=== PATIENT | male | born 1990 | race Two or more races ===

== ENCOUNTER 2018-06-18 16:38 | Emergency (ER) | payer OTHER ==
[2018-06-18] MEDS ORDERED: Benzocaine 20% Topical Spray UD MUCMEM ONE (16:56)
[2018-06-18] MEDS ORDERED: Lidocaine 2% Viscous Solution 15 ML Cup PO STA (16:56)
--- NOTE | 2018-06-18 16:56 | EDM.PDOC ---
ED HPI GENERAL MEDICAL PROBLEM - General Chief Complaint: ENT Problem Stated Complaint: TOOTH PAIN Time Seen by Provider: 06/18/18 16:39 Source of Information: Reports: Patient History Limitations: Reports: No Limitations - History of Present Illness INITIAL COMMENTS - FREE TEXT/NARRATIVE: HISTORY AND PHYSICAL: History of present illness: Patient is a 28-year-old male who presents to the emergency room today with complaints of dental pain. Patient had a wisdom tooth extraction on 06/12/18. He has been on amoxicillin since that time. He is concerned now of the #25 and #24 tooth as he does have some increased irritation and pain there. He denies any fever, chills, chest pain, shortness of breath or cough. Denies any GI or symptoms. He has been eating and drinking appropriately. Review of systems: As per history of present illness and below otherwise all systems reviewed and negative. Past medical history: As per history of present illness and as reviewed below otherwise noncontributory. Surgical history: As per history of present illness and as reviewed below otherwise noncontributory. Social history: See social history for further information Family history: As per history of present illness and as reviewed below otherwise noncontributory. Physical exam: General: Well-developed and well-nourished 28-year-old male. Alert and oriented. Nontoxic appearing and in no acute distress. HEENT: Atraumatic, normocephalic, pupils equal and reactive bilaterally, negative for conjunctival pallor or scleral icterus, mucous membranes moist, patient does have mild erythema along the gumline of 24 and 25 with mild tenderness to palpation. TMs normal bilaterally, throat clear, neck supple, nontender, trachea midline. No drooling or trismus noted. No meningeal signs. No hot potato voice noted. Lungs: Clear to auscultation, breath sounds equal bilaterally, chest nontender. Heart: S1S2, regular rate and rhythm without overt murmur Abdomen: Soft, nondistended, nontender. Negative for masses or hepatosplenomegaly. Negative for costovertebral tenderness. Pelvis: Stable nontender. Genitourinary: Deferred. Rectal: Deferred. Skin: Intact, warm, dry. No lesions or rashes noted. Extremities: Atraumatic, negative for cords or calf pain. Neurovascular unremarkable. Neuro: Awake, alert, oriented. Cranial nerves II through XII unremarkable. Cerebellum unremarkable. Motor and sensory unremarkable throughout. Exam nonfocal. Notes: Patient is concerned that his antibiotics are not strong enough. I will give him a shot of Rocephin but have him continue to take the amoxicillin as prescribed. Encouraged him to follow-up with his dentist on Tuesday. Supportive care measures were reviewed and discussed. Voices understanding and is agreeable to plan of care. Denies any further questions or concerns at this time. Diagnostics: None Therapeutics: Dental balls, Rocephin Prescription: Tramadol Impression: Dentalgia Plan: 1. Please take the antibiotic you already have prescribed as directed. 2. Tylenol and/or ibuprofen as needed for pain management. "Tooth Balls" have been given to you; apply along the gumline every 2-3 hours as needed. Do not swallow these; external use only. Tramadol for moderate to severe pain. This medication may cause drowsiness a do not take it will driving her needing to be functioning outside of the house. 3. Follow-up with a dentist for definitive care. Return to the ED as needed and as discussed. Definitive disposition and diagnosis as appropriate pending reevaluation and review of above. dental pain Pain Score (Numeric/FACES): 9 - Related Data Allergies Allergy/AdvReac Type Severity Reaction Status Date / Time No Known Allergies Allergy Verified 06/18/18 17:13 Home Meds: Home Meds Amoxicillin 500 mg PO TID 06/18/18 [History] ED ROS ENT - Review of Systems Review Of Systems: ROS reveals no pertinent complaints other than HPI. ED EXAM, ENT - Physical Exam Exam: See Below (See dictation) Course - Vital Signs Last Recorded V/S: Last Vital Signs Temp 97.5 F 06/18/18 17:16 Pulse 109 H 06/18/18 17:16 Resp 18 06/18/18 17:16 BP 147/104 H 06/18/18 17:16 Pulse Ox 97 06/18/18 17:16 - Orders/Labs/Meds Meds: Medications Discontinued Medications Generic Name Dose Route Start Last Admin Trade Name Freq PRN Reason Stop Dose Admin Benzocaine 2 each 06/18/18 16:56 Hurricaine One 20% MUCMEM 06/18/18 16:57 ONETIME ONE Ceftriaxone Sodium 1 gm 06/18/18 17:01 Rocephin IM 06/18/18 17:02 ONETIME ONE Lidocaine HCl 15 ml 06/18/18 16:56 Xylocaine 2% Viscous PO 06/18/18 16:57 NOW STA Lidocaine HCl 2.1 ml 06/18/18 17:02 Xylocaine 1% INJECT 06/18/18 17:03 ONETIME ONE Departure - Departure Time of Disposition: 17:03 Disposition: Home, Self-Care 01 Clinical Impression: Dentalgia - Discharge Information Referrals: PCP,Unknown [Primary Care Provider] - Forms: ED Department Discharge Additional Instructions: The following information is given to patients seen in the emergency department who are being discharged to home. This information is to outline your options for follow-up care. We provide all patients seen in our emergency department with a follow-up referral. The need for follow-up, as well as the timing and circumstances, are variable depending upon the specifics of your emergency department visit. If you don't have a primary care physician on staff, we will provide you with a referral. We always advise you to contact your personal physician following an emergency department visit to inform them of the circumstance of the visit and for follow-up with them and/or the need for any referrals to a consulting specialist. The emergency department will also refer you to a specialist when appropriate. This referral assures that you have the opportunity for follow-up care with a specialist. All of these measure are taken in an effort to provide you with optimal care, which includes your follow-up. Under all circumstances we always encourage you to contact your private physician who remains a resource for coordinating your care. When calling for follow-up care, please make the office aware that this follow-up is from your recent emergency room visit. If for any reason you are refused follow-up, please contact the [facility] Emergency Department at and asked to speak to the emergency department charge nurse. [facility] [address] [place] [id number] [facility] [address] [place] [id number] 1. Please take the antibiotic you already have prescribed as directed. 2. Tylenol and/or ibuprofen as needed for pain management. "Tooth Balls" have been given to you; apply along the gumline every 2-3 hours as needed. Do not swallow these; external use only. Tramadol for moderate to severe pain. This medication may cause drowsiness a do not take it will driving her needing to be functioning outside of the house. 3. Follow-up with a dentist for definitive care. Return to the ED as needed and as discussed.
[2018-06-18] MEDS ORDERED: cefTRIAXone 1 GM Vial IM ONE (17:01)
[2018-06-18] MEDS ORDERED: Lidocaine 1% 20 ML MDV INJECT ONE (17:02)
[2018-06-18] MEDS ORDERED: Lidocaine 1% PF 2 ML SDV ONE (17:44)
== END 2018-06-18 18:00 | disposition home or self-care (01) ==
LOC: MW.ED 16:38
DX: K08.89 Other specified disorders of teeth and supporting structures (principal)
CPT/HCPCS: 96372; 99282; A9270; J0696; J2001